=== PATIENT | male | born 1995 | race African-American/Black ===

== ENCOUNTER 2016-11-28 08:42 | Emergency (ER) | payer OTHER ==
[~2016-11-28] VITALS: Ht 165.1 cm; Wt 63.6 kg
[~2016-11-28 08:42] MED LIST: NOCURR
[2016-11-28 09:45] VITALS: BP 148/82
== END 2016-11-28 10:01 | disposition home or self-care (01) ==
LOC: EMS 08:43
DX: J02.9 Acute pharyngitis, unspecified (principal); Z88.6 Allergy status to analgesic agent
CPT/HCPCS: 99281

== ENCOUNTER 2018-04-12 23:30 | Emergency (ER) | payer BC ==
[~2018-04-12] VITALS: Ht 165.1 cm; Wt 56.8 kg
[2018-04-12 23:45] VITALS: BP 133/74
[2018-04-12] MEDS ORDERED: PredniSONE 5 MG/5 ML SOLUTION UDCUP PO ONE (23:45)
[2018-04-12] MEDS ORDERED: PENICILLIN G BENZATHINE LA 1,200,000 UNITS/2 ML SYRINGE IM ONE (23:45)
== END 2018-04-13 00:09 | disposition home or self-care (01) ==
LOC: EMS 23:30
DX: J02.0 Streptococcal pharyngitis (principal); F17.210 Nicotine dependence, cigarettes, uncomplicated; Z88.6 Allergy status to analgesic agent
CPT/HCPCS: 96372; 99283; J0561; J7512